=== PATIENT | female | born 1995 | race Caucasian/White ===

== ENCOUNTER 2020-05-17 10:49 | Emergency (ER) | payer OTHER ==
[~2020-05-17] VITALS: Ht 157.5 cm; Wt 63.6 kg
[2020-05-17 10:50] VITALS: BP 139/86
== END 2020-05-17 11:26 | disposition left against medical advice (07) ==
LOC: EMS 11:12
DX: Z11.59 Encounter for screening for other viral diseases (principal); Z53.21 Procedure and treatment not carried out due to patient leaving prior to being seen by health care provider